=== PATIENT | male | born 1965 | race Hispanic/Latino ===

== ENCOUNTER 2017-11-05 01:20 | Day surgery (SDC) | payer BC ==
[2017-11-01 16:05] VITALS: BP 131/75
[2017-11-01 16:36] LABS: BASOPHIL % 0.7 % (0.0-0.2); EOSINOPHIL # 0.1 10^3/uL (0.0-0.2); HEMOGLOBIN 13.4 g/dL (13.9-16.3); LYMPHOCYTES # 2.5 10^3/uL (1.0-4.8); LYMPHOCYTES % 41.6 % (24.0-44.0); MEAN CELL HGB CONCENTRATION 33.3 g/dL (33-37); MEAN CORP VOLUME 90.4 fL (78-100); MEAN PLATELET VOLUME 10.6 fL (7.8-11.0); MONOCYTES # 0.5 10^3/uL (0.3-0.8); NEUTROPHIL # 2.9 10^3/uL (1.8-7.7); NEUTROPHILS % 47.5 % (41.0-85.0); RED CELL DISTRIBUTION WIDTH 12.9 % (11.5-14.5)
[2017-11-01 16:52] LABS: CALCIUM 9.1 mg/dL (8.4-10.5); CARBON DIOXIDE 26.3 mmol/L (20.0-32)
[~2017-11-05] VITALS: Ht 162.6 cm; Wt 98.0 kg
[2017-11-05] VITALS (8 sets, daily range): BP systolic 123–156; BP diastolic 60–71
[~2017-11-05 01:20] MED LIST: LACTATED RINGERS IV SCH; ROSU20TA PO
[2017-11-05] MEDS ORDERED: LACTATED RINGERS 1,000 ML ONE (05:06)
[2017-11-05] MEDS ORDERED: LACTATED RINGERS 1,000 ML IV SCH ×2 (06:00→09:30)
[2017-11-05] MEDS ORDERED: SODIUM CHLORIDE IR ONE (07:05)
[2017-11-05] MEDS ORDERED: XYLOCAINE 2%-EPI 1:100,000 ONE (07:05)
[2017-11-05] MEDS ORDERED: NS 3000ML IRR IR ONE (07:05)
[2017-11-05] MEDS ORDERED: DECADRON ONE (07:12)
[2017-11-05] MEDS ORDERED: NS 100ML 100 ML IV ONE (07:12)
[2017-11-05] MEDS ORDERED: LIDOCAINE 2% VIAL ONE (07:13)
[2017-11-05] MEDS ORDERED: ZOFRAN ONE (07:13)
[2017-11-05] MEDS ORDERED: TORADOL ONE (07:13)
[2017-11-05] MEDS ORDERED: EPHEDRINE SULFATE ONE (07:14)
[2017-11-05] MEDS ORDERED: QUELICIN ONE (07:14)
[2017-11-05] MEDS ORDERED: SUBLIMAZE ONE (07:14)
[2017-11-05] MEDS ORDERED: DIPRIVAN IV ONE (07:14)
[2017-11-05] MEDS ORDERED: VERSED ONE (07:14)
[2017-11-05] MEDS ORDERED: MORPHINE SULFATE IV PRN (09:30)
[2017-11-05] MEDS ORDERED: PHENERGAN IV PRN (09:30)
[2017-11-05] MEDS ORDERED: SUBLIMAZE IV PRN (09:30)
[2017-11-05] MEDS ORDERED: TRAM-47 PO (09:38)
--- NOTE | 2017-11-05 11:42 | OPH ---
DATE OF SURGERY: 11/05/2017 PREOPERATIVE DIAGNOSIS: Lateral meniscal tear, left knee. POSTOPERATIVE DIAGNOSIS: Lateral meniscal tear, left knee plus medial meniscal tear, left knee. OPERATIVE PROCEDURE: Arthroscopy of the left knee with partial medial and lateral meniscectomies. SURGEON: Luis Alberto Otero MD ANESTHESIA: LMA. TOURNIQUET TIME: 25 minutes at 300 mmHg. DRAINS: None. BLOOD LOSS: 10 mL. DESCRIPTION OF INDICATIONS: The patient is a 52-year-old male. He suffered an on the job injury in 2014. An MRI at that time showed that he had a lateral meniscal tear; however, at that point, he improved with conservative treatment and has basically been living with his symptoms over the last several years. He has had increased problems with the knee over the last several months. He complains of pain with ambulation as well as swelling and limping. The patient did not improve with a cortisone injection. He has tried some Advil and Aleve for it without significant relief. He has a good range of motion of the knee, a 1+ effusion, has some tenderness about the medial and lateral joint line to palpation. His plain x-rays showed some minor narrowing medially. The MRI scan showed that he had a lateral meniscal tear of the anterior horn. DESCRIPTION OF PROCEDURE: The patient was taken to the operating room for arthroscopy and meniscectomy. The patient was placed in the operating table in the supine position. LMA anesthetic was induced without difficulty. The patient had the well-padded tourniquet placed around the left upper extremity. The left upper extremity was then sterilely prepped and draped. The tourniquet was then inflated to 300 mmHg. The patient had arthroscopy portals made superolateral, anterolateral and anteromedial. The arthroscope was introduced anterolaterally, the outflow was superior lateral, the probe was anteromedial. His suprapatellar pouch was noted to have some diffuse hypertrophic synovitis. The femoral sulcus had some grade 3-4 chondromalacia about the central portion of the sulcus. The patella itself had fairly good articular cartilage coverage. There was some hypertrophic synovium about the patellofemoral joint. The medial and lateral gutters were viewed. There was mild hypertrophic synovium medially and laterally. The patient's medial compartment was entered. He had a small area of grade 3 chondromalacia about the medial femoral condyle that was shaved. The patient's medial meniscus in the posterior horn was noted to have some tears of the central portion. A shaver was introduced and the tears were resected with the shaver. The tibial plateau was normal as far as the articular cartilage goes. Intercondylar notch was viewed. His anterior and posterior cruciate ligaments were normal. The patient then had the lateral compartment viewed in the [id number] position. There was a tear of the anterior horn of the lateral meniscus that was removed with a shaver as well as the [place]. He also had some small tears of the middle and posterior horns that were removed with the shaver. The articular cartilage about the lateral femoral condyle and the lateral tibial plateau were normal. The patient then had the arthroscopic equipment removed from the knee. The portal tracts were closed with 3-0 Ethilon in an interrupted manner. The patient had the compressive dressing applied. He was extubated in the operating room, tourniquet was released after 25 minutes. He was sent to recovery in stable condition. Luis Alberto Otero MD DR: JANAE/narinder JOB# [id number]
--- NOTE | 2017-11-06 16:26 | PCM.EKG ---
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
== END 2017-11-05 10:26 | disposition home or self-care (01) | DRG 563 ==
LOC: SDC 01:20
PROVIDERS: ATTEND Orthopaedic Surgery
DX: S83.282A Other tear of lateral meniscus, current injury, left knee, initial encounter (principal); S83.242A Other tear of medial meniscus, current injury, left knee, initial encounter; E66.9 Obesity, unspecified; Z68.37 Body mass index [BMI] 37.0-37.9, adult; X58.XXXA Exposure to other specified factors, initial encounter; Y93.89 Activity, other specified; Y92.89 Other specified places as the place of occurrence of the external cause; Y99.8 Other external cause status; Z98.890 Other specified postprocedural states; Z79.899 Other long term (current) drug therapy; F17.210 Nicotine dependence, cigarettes, uncomplicated
CPT/HCPCS: 29880; 36415; 80053; 85025; 93005; A4649 ×4; J0330; J1100; J1885; J2001; J2250; J2405; J3010; J3490 ×2; J7030 ×2; J7050; J7120

== ENCOUNTER → 2023-02-20 | Outpatient (CLI) | payer BC ==
[~2023-02-20] MED LIST changes: -LACTATED RINGERS IV SCH; -ROSU20TA PO; +ROSU20TA2 PO; +TRAM-47 PO
--- NOTE | 2023-02-20 17:00 | DIREP ---
PROCEDURE:MRI JOINT LOWER EXTREMITY-RT W/O COMPARISON:None. INDICATIONS:M23.91 Unspecified internal derangement of right knee TECHNIQUE:A complete multi-planar MRI was performed of the knee. FINDINGS: LIGAMENTS:Anterior cruciate ligament is intact. The posterior cruciate ligament is normal. The medial collateral ligament and lateral collateral ligamentous structures are normal. MENISCI:Horizontal tear of the anterior horn body junction and anterior horn of the lateral meniscus. Horizontal tear of the medial meniscal body and posterior horn body junction. CARTILAGE:Mild medial compartment chondromalacia. Moderate patellofemoral chondromalacia, most pronounced about the medial facet. EXTENSOR MECHANISM: Intact BONES:Mild degenerate patellofemoral bone marrow edema about the central portion of the medial and lateral femoral trochlea. No fracture or suspicious osseous lesion. JOINT SPACE:Moderate effusion. No loose bodies. OTHER: 3.6 x 1.0 x 1.6 cm soft tissue ganglion associated with the proximal tibiofibular interval. Medial plica is normal. 11 mm tibial tuberosity to trochlear groove interval. CONCLUSION: 1. Medial and lateral meniscal tears. 2. Moderate effusion. 3. Bicompartmental chondromalacia. 4. Mild degenerative bone marrow edema involving the central portion of the medial and lateral femoral trochlea. Dictated by: Cisco Rahman DO on 02/20/2023 at 04:54 PM
== END | disposition home or self-care (01) ==
LOC: RAD 14:38
PROVIDERS: ATTEND Orthopaedic Surgery
DX: S83.241A Other tear of medial meniscus, current injury, right knee, initial encounter (principal); S83.281A Other tear of lateral meniscus, current injury, right knee, initial encounter; M23.91 Unspecified internal derangement of right knee; M25.461 Effusion, right knee; M94.261 Chondromalacia, right knee; M17.11 Unilateral primary osteoarthritis, right knee; X58.XXXA Exposure to other specified factors, initial encounter; Y93.89 Activity, other specified; Y92.89 Other specified places as the place of occurrence of the external cause; Y99.8 Other external cause status
CPT/HCPCS: 73721